=== PATIENT | female | born 1975 | race Caucasian/White ===

== ENCOUNTER 2020-10-14 18:28 | Emergency (ER) | payer OTHER, SELFPAY ==
[2020-10-14 19:07] VITALS: BP 128/83; PULSE 81; RESP 16; TEMP 36.8; O2SAT 99
[2020-10-14 19:16] VITALS: BP 128/83; PULSE 81; RESP 16; TEMP 36.8; O2SAT 99; BMI 33.1
[2020-10-14 20:20] VITALS: BP 120/83; PULSE 76; RESP 18; TEMP 36.7; O2SAT 99
--- NOTE | 2020-10-14 20:41 | ED.WOUNDLAC ---
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 Client turn her head and patient got her left index finger. Superficial caught. Patient is up-to-date with her tetanus shot. Denies any other symptoms Related Data Allergies Allergy/AdvReac Type Severity Reaction Status Date / Time acetaminophen [From VICODIN] Allergy Mild ITCHY Verified 10/14/20 19:15 hydrocodone [From VICODIN] Allergy Mild ITCHY Verified 10/14/20 19:15 oxycodone [From PERCOCET] Allergy Mild ITCHY Verified 10/14/20 19:15 latex [LATEX] Allergy Unknown ITCHY Verified 10/14/20 19:15 Review of Systems Review of Systems: Constitutional : No Weight loss, No Fever, No Chills, No Night Sweats, No Fatigue, No Malaise ENT/Mouth : No Hearing loss, No Ear Pain, No Nasal Congestion, No Sinus Pain, No Hoarseness, No sore throat, No Rhinorrhea, No Swallowing Difficulty Eyes: No Eye Pain, No Swelling, No Redness, No Foreign Body, No Discharge, No Vision Changes Cardiovascular : No Chest Pain, No SOB, No Dyspnea on Exertion, No Orthopnea, No Edema, No Palpitations Respiratory : No Cough, No Sputum, No Wheezing, No Smoke Exposure, No Dyspnea Gastrointestinal : No Nausea, No Vomiting, No Diarrhea, No Constipation, No abdominal Pain, No Hematochezia, No Melena Genitourinary : no irregular bleeding, No Dysuria, No Urinary Frequency, No Hematuria, No Urinary Incontinence, No Urgency, No Flank Pain, No Urinary Flow Changes, No Hesitancy Musculoskeletal : No joint pain, No Myalgias, No Joint Swelling Skin : No Skin Lesions, No rash, laceration Neuro : No Weakness, No Numbness, No Paresthesias, No Loss of Consciousness, No Dizziness, No Headache Psych : No Anxiety/Panic, No Depression, No SI/HI/AH/VH, No Social Issues, Heme/Lymph: No Bruising, No Bleeding,No Lymphadenopathy Endocrine : No Polyuria, No Polydipsia, No Temperature Intolerance Yes all other systems are reviewed and are negative PMFSH Past Medical History Medical History (Updated 10/14/20 @ 20:48 by MARGUERITE Mirza) Sarcoidosis Social History Social History Advance Directives: No Advance Directives Information Provided: Yes Physical Exam Vital Signs: Vital Signs: Last Vital Signs Temp 98.0 F 10/14/20 20:20 Pulse 76 10/14/20 20:20 Resp 18 10/14/20 20:20 BP 120/83 10/14/20 20:20 Pulse Ox 99 10/14/20 20:20 Body Mass Index 33.1 Const: General: cooperative, healthy appearing and comfortable Nutritional Appearance: average body habitus Orientation/consciousness: patient oriented x3 Limitations: no limitations Resp: Effort & Inspection: normal respiratory effort and able to speak in complete sentences Auscultation: clear to auscultation bilaterally Skin: Trauma: laceration (Left index finger) Neuro: General: patient oriented x3 Psych: Appearance: grossly normal Mental Status: mental status grossly normal Speech and movement: Normal speech and movement present Affect: normal affect Attitude: cooperative Thought process: Normal thought process present Insight: Good insight present (Psych) Course Course Course Narrative: Left index finger superficial laceration. Tetanus up-to-date. Dermabond used to close the wound. Patient may be discharged home Discharge Plan Discharge Clinical Impression: Laceration Patient Disposition: Home, Self-Care Instructions: Finger Laceration (ED) Additional Instructions: Keep your wound dry for at least 24 hours. Make sure you wear gloves when you cut client's hair. Interventions: ED Discharge Assessment Last Done: 10/14/20 20:55 Discharge Date/Time: 10/14/20 20:56
== END 2020-10-14 20:56 | disposition home or self-care (01) ==
PROVIDERS: Emergency Provider Internal Medicine; PCP Internal Medicine
DX: S61.211A Laceration without foreign body of left index finger without damage to nail, initial encounter (principal); W27.2XXA Contact with scissors, initial encounter; Y93.E8 Activity, other personal hygiene; Y92.513 Shop (commercial) as the place of occurrence of the external cause; Y99.0 Civilian activity done for income or pay
CPT/HCPCS: 12001; 99284

== ENCOUNTER 2024-04-05 01:08 | Emergency (ER) | payer OTHER, SELFPAY ==
--- NOTE | ~2024-04-05 | XR_ITS ---
EXAMINATION: XR ELBOW, LEFT CLINICAL INFORMATION: Injury. Pain. COMPARISON: None available. TECHNIQUE: AP, lateral, and oblique views of the left elbow. FINDINGS: The bones and soft tissues are normal. No fracture or joint effusion. Alignment is anatomic. Joint spaces are maintained. XR/XR elbow LT 2V IMPRESSION: No acute osseous abnormality. Electronically signed by: Mike Diaz MD 04/05/2024 02:34 AM EDT
--- NOTE | ~2024-04-05 | XR_ITS ---
EXAMINATION: XR FINGER, LEFT CLINICAL INFORMATION: Injury. Pain. COMPARISON: None available. TECHNIQUE: Three views of the left first digit. FINDINGS: There is a lucency through the base of the distal phalanx first digit with possible cortical step off only seen well on one image. There is no dislocation. There appears to be soft tissue swelling about the first digit. XR/XR finger LT min 2V IMPRESSION: 1. Lucency through the base of the distal phalanx first digit with possible cortical step-off possibly an undisplaced fracture.. 2. Soft tissue swelling. Electronically signed by: Mike Diaz MD 04/05/2024 02:37 AM EDT
[2024-04-05 01:43] VITALS: BP 124/82; PULSE 119; RESP 20; TEMP 36.9; O2SAT 96; BMI 34.4
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
[2024-04-05] MEDS: Ibuprofen 600 MG TABLET PO (02:41)
[2024-04-05 02:50] VITALS: BP 124/82; PULSE 92; RESP 16; TEMP 36.9; O2SAT 99
== END 2024-04-05 02:50 | disposition home or self-care (01) ==
PROVIDERS: Emergency Provider Internal Medicine; PCP Internal Medicine
DX: S63.602A Unspecified sprain of left thumb, initial encounter (principal); R51.9 Headache, unspecified; R42 Dizziness and giddiness; M79.642 Pain in left hand; M25.522 Pain in left elbow; Y04.2XXA Assault by strike against or bumped into by another person, initial encounter; Y93.89 Activity, other specified; Y92.488 Other paved roadways as the place of occurrence of the external cause; Y99.8 Other external cause status
CPT/HCPCS: 29130; 73070; 73140; 99283; 99284